=== PATIENT | female | born 1975 | race Caucasian/White ===

== ENCOUNTER 2019-04-19 17:34 | Emergency (ER) | payer OTHER, SELFPAY ==
--- NOTE | 2019-04-19 19:59 | ER ---
Nurse's Notes [facility] Name: Rose Johnson Age: 43 yrs Sex: Female : 1975 Arrival Date: 04/19/2019 Time: 17:39 Bed 9 Private MD: Diagnosis: Acute bronchitis Presentation: 04/19 17:53 Presenting complaint: Patient states: I woke up feeling really bad, sore throat, hurts la1 when I breathe. Transition of care: patient was not received from another setting of care. Onset of symptoms was April 19, 2019. Risk Assessment: Do you want to hurt yourself or someone else? Patient reports no desire to harm self or others. Initial Sepsis Screen: Does the patient meet any 2 criteria? No. Patient's initial sepsis screen is negative. Does the patient have a suspected source of infection? No. Patient's initial sepsis screen is negative. Care prior to arrival: None. 17:53 Method Of Arrival: Ambulatory la1 17:53 Acuity: AISHA 4 la1 Triage Assessment: 20:19 General: Appears in no apparent distress. Behavior is calm, cooperative. Pain: ak1 Complains of pain in throat. EENT: Throat is reddened. Neuro: Level of Consciousness is awake, alert, obeys commands, Oriented to person, place, time, Moves all extremities. Cardiovascular: No deficits noted. Respiratory: Airway is patent Respiratory effort is unlabored, Respiratory pattern is regular, symmetrical, Breath sounds are clear. Historical: - Allergies: 17:54 No Known Allergies; la1 - PMHx: 17:54 None; la1 - Immunization history:: Adult Immunizations up to date. - Social history:: Smoking status: Patient/guardian denies using tobacco. - Ebola Screening: : No symptoms or risks identified at this time. Screenin:19 Abuse screen: Denies threats or abuse. Denies injuries from another. Nutritional ak1 screening: No deficits noted. Tuberculosis screening: No symptoms or risk factors identified. Fall Risk None identified. Assessment: 20:19 Respiratory: Reports cough that is non-productive, Airway is patent Respiratory effort ak1 is even, unlabored, Respiratory pattern is regular, Breath sounds are clear. Vital Signs: 17:54 BP 147 / 88; Pulse 98; Resp 18; Temp 97.4; Pulse Ox 100% on R/A; Weight 117.93 kg; la1 Height 5 ft. 7 in. (170.18 cm); 17:54 Body Mass Index 40.72 (117.93 kg, 170.18 cm) la1 ED Course: 17:39 Patient arrived in ED. am2 17:53 Triage completed. la1 17:54 Arm band placed on left wrist. la1 17:56 Nida Fenton F[facility]-C [facility]. snw 17:56 Pollo Reyes MD is Attending Physician. snw 20:18 Sari Ordoñez, RN is Primary Nurse. ak1 20:19 Patient has correct armband on for positive identification. Bed in low position. ak1 20:19 No provider procedures requiring assistance completed. Patient did not have IV access ak1 during this emergency room visit. Administered Medications: 20:18 Drug: Tussionex Pennkinetic ER 5 ml Route: PO; ak1 20:31 Follow up: Response: No adverse reaction ak1 20:19 Drug: predniSONE 20 mg Route: PO; ak1 20:31 Follow up: Response: No adverse reaction ak1 20:19 Drug: Albuterol 2.5 mg Route: Inhalation; ak1 20:31 Follow up: Response: No adverse reaction ak1 Outcome: 19:58 Discharge ordered by MD. snw 20:20 Condition: good ak1 20:20 Discharge instructions given to patient, Instructed on discharge instructions, follow up and referral plans. no drinking with medication, no driving heavy equipment, medication usage, Demonstrated understanding of instructions, follow-up care, medications, Prescriptions given X 4. 20:35 Discharged to home ambulatory, with family. ak1 20:35 Patient left the ED. ak1 Signatures: Nida Fenton FNP-C FNP-Csnw Aaron Plmumer RN RN la1 Sari Ordoñez, RN RN ak1 Danni Rosales am2
--- NOTE | 2019-04-19 19:59 | EDPHYS ---
Physician Documentation [facility] Name: Rose Johnson Age: 43 yrs Sex: Female : 1975 Arrival Date: 04/19/2019 Time: 17:39 Bed 9 Private MD: ED Physician Pollo Reyes HPI: 04/20 00:21 This 43 yrs old Female presents to ER via Ambulatory with complaints of Sore snw Throat, Headache, Ear Pain. 00:21 The patient presents with sore throat. The patient describes throat pain as raw, snw scratchy. Onset: The symptoms/episode began/occurred suddenly, 1 day(s) ago, and became persistent. Severity of symptoms: At their worst the symptoms were moderate. Associated signs and symptoms: Pertinent positives: earache, flu-like symptoms, shortness of breath. It is unknown whether or not the patient has had similar symptoms in the past. It is unknown whether or not the patient has recently seen a physician. Historical: - Allergies: 04/19 17:54 No Known Allergies; la1 - PMHx: 17:54 None; la1 - Immunization history:: Adult Immunizations up to date. - Social history:: Smoking status: Patient/guardian denies using tobacco. - Ebola Screening: : No symptoms or risks identified at this time. ROS: 04/20 00:20 Eyes: Negative for injury, pain, redness, and discharge. snw Neck: Negative for injury, pain, and swelling, Cardiovascular: Negative for chest pain, palpitations, and edema, Abdomen/GI: Negative for abdominal pain, nausea, vomiting, diarrhea, and constipation, Back: Negative for injury and pain, : Negative for injury, bleeding, discharge, and swelling, MS/Extremity: Negative for injury and deformity, Skin: Negative for injury, rash, and discoloration, Neuro: Negative for headache, weakness, numbness, tingling, and seizure. Constitutional: Positive for body aches, chills, malaise, poor PO intake. ENT: Positive for ear pain, sore throat. Respiratory: Positive for cough, shortness of breath. Exam: 00:19 Constitutional: This is a well developed, well nourished patient who is awake, alert, snw and in no acute distress. Head/Face: Normocephalic, atraumatic. Eyes: Pupils equal round and reactive to light, extra-ocular motions intact. Lids and lashes normal. Conjunctiva and sclera are non-icteric and not injected. Cornea within normal limits. Periorbital areas with no swelling, redness, or edema. 00:19 Neck: Trachea midline, no thyromegaly or masses palpated, and no cervical lymphadenopathy. Supple, full range of motion without nuchal rigidity, or vertebral point tenderness. No Meningismus. Chest/axilla: Normal chest wall appearance and motion. Nontender with no deformity. No lesions are appreciated. Cardiovascular: Regular rate and rhythm with a normal S1 and S2. No gallops, murmurs, or rubs. Normal PMI, no JVD. No pulse deficits. 00:19 Abdomen/GI: Soft, non-tender, with normal bowel sounds. No distension or tympany. No guarding or rebound. No evidence of tenderness throughout. Back: No spinal tenderness. No costovertebral tenderness. Full range of motion. Skin: Warm, dry with normal turgor. Normal color with no rashes, no lesions, and no evidence of cellulitis. MS/ Extremity: Pulses equal, no cyanosis. Neurovascular intact. Full, normal range of motion. Neuro: Awake and alert, GCS 15, oriented to person, place, time, and situation. Cranial nerves II-XII grossly intact. Motor strength 5/5 in all extremities. Sensory grossly intact. Cerebellar exam normal. Normal gait. Psych: Awake, alert, with orientation to person, place and time. Behavior, mood, and affect are within normal limits. 00:19 ENT: Ear canal(s): are normal, TM's: are normal, Nose: is normal, Mouth: is normal, Posterior pharynx: erythema, that is moderate, Voice: is hoarse. 00:19 Respiratory: the patient does not display signs of respiratory distress, Respirations: shallow respirations, Breath sounds: bronchial sounds, bronchitic cough. Vital Signs: 04/19 17:54 BP 147 / 88; Pulse 98; Resp 18; Temp 97.4; Pulse Ox 100% on R/A; Weight 117.93 kg; la1 Height 5 ft. 7 in. (170.18 cm); 17:54 Body Mass Index 40.72 (117.93 kg, 170.18 cm) la1 MDM: 19:37 Patient medically screened. snw 04/20 00:20 Data reviewed: vital signs, nurses notes. Data interpreted: Pulse oximetry: on room air snw is 100 %. Interpretation: normal. Counseling: I had a detailed discussion with the patient and/or guardian regarding: the historical points, exam findings, and any diagnostic results supporting the discharge/admit diagnosis, lab results, the need for outpatient follow up, to return to the emergency department if symptoms worsen or persist or if there are any questions or concerns that arise at home. Special discussion: I have referred the patient to see his PCP for further evaluation of high blood pressure. Based on the history and exam findings, there is no indication for further emergent testing or inpatient evaluation. I discussed with the patient/guardian the need to see the primary care provider for further evaluation of the symptoms. 04/19 17:40 Order name: Strep; Complete Time: 18:54 snw 04/19 17:54 Order name: Flu; Complete Time: 18:54 la1 04/19 18:49 Order name: Throat Culture EDMS Administered Medications: 04/19 20:18 Drug: Tussionex Pennkinetic ER 5 ml Route: PO; ak1 20:31 Follow up: Response: No adverse reaction ak1 20:19 Drug: predniSONE 20 mg Route: PO; ak1 20:31 Follow up: Response: No adverse reaction ak1 20:19 Drug: Albuterol 2.5 mg Route: Inhalation; ak1 20:31 Follow up: Response: No adverse reaction ak1 Disposition: 04/20 07:07 Co-signature as Attending Physician, Pollo Reyes MD. rn Disposition: 04/19/19 19:58 Discharged to Home. Impression: Acute bronchitis. - Condition is Stable. - Discharge Instructions: Acute Bronchitis, Adult, Fever, Adult, Smoking Hazards, Cough, Adult, Rehydration, Adult. - Prescriptions for Zyrtec 10 mg Oral Tablet - take 1 tablet by ORAL route once daily As needed; 20 tablet. Prednisone 20 mg Oral Tablet - take 2 tablet by ORAL route once daily for 5 days; 10 tablet. Albuterol Sulfate 90 mcg/actuation - inhale 1-2 puff by INHALATION route every 4-6 hours; 1 Inhaler. Pepcid 20 mg Oral Tablet - take 1 tablet by ORAL route once daily for 10 days; 10 tablet. - Work release form, Medication Reconciliation Form, Thank You Letter, Antibiotic Education, Prescription Opioid Use form. - Follow up: Private Physician; When: 5 - 6 days; Reason: Recheck today's complaints, Continuance of care, Re-evaluation by your physician. Follow up: Emergency Department; When: As needed; Reason: Worsening of condition. Signatures: Dispatcher [employer] [facility] Jossy Nida, EVP STRATEGY-C EVP STRATEGY-Csnw Pollo Reyes MD MD rn Attema, Lee, RN RN la1 Sari Ordoñez RN RN ak1 Corrections: (The following items were deleted from the chart) 04/19 20:35 19:58 04/19/2019 19:58 Discharged to Home. Impression: Acute bronchitis. Condition is ak1 Stable. Forms are Medication Reconciliation Form, Thank You Letter, Antibiotic Education, Prescription Opioid Use. Follow up: Private Physician; When: 5 - 6 days; Reason: Recheck today's complaints, Continuance of care, Re-evaluation by your physician. Follow up: Emergency Department; When: As needed; Reason: Worsening of condition. snw
[2019-04-19] MEDS ORDERED: HYDROCODONE/CHLORPHEN 5 ML/OSYR ONE (20:17)
[2019-04-19] MEDS ORDERED: predniSONE 20 MG TAB ONE (20:17)
[2019-04-19] MEDS ORDERED: ALBUTEROL 2.5 MG/3 ML NEB SOL ONE (20:17)
[2019-04-19 22:04] VITALS: BP 147/88; TEMP 97.4; O2SAT 100
== END 2019-04-19 20:35 | disposition home or self-care (01) ==
LOC: ER 17:34
DX: J20.9 Acute bronchitis, unspecified (principal)
CPT/HCPCS: 87070; 87081; 87804; 99284; J7512

== ENCOUNTER 2022-02-06 08:58 | Emergency (ER) | payer OTHER ==
[2022-02-06] MEDS ORDERED: dexAMETHasone 10 MG/ML VIAL ONE (10:33)
--- NOTE | 2022-02-06 12:46 | EDPHYS ---
Physician Documentation [facility] Name: Rose Johnson Age: 46 yrs Sex: Female : 1975 Arrival Date: 02/06/2022 Time: 09:00 Bed 10 Private MD: Arlene Aguilera ED Physician Henry Mejia HPI: 02/06 12:45 This 46 yrs old Female presents to ER via Ambulatory with complaints of Eye Pain, Sore jmm Throat. 12:45 The patient presents with sore throat. jmm 12:45 Onset: The symptoms/episode began/occurred gradually. Modifying factors: The symptoms jmm are alleviated by nothing, the symptoms are aggravated by nothing. Associated signs and symptoms: Pertinent positives:. This is a 46 year old female with no chronic medical conditions that presents to the ED with complaints of 3 days of itching to her eyes with sore throat beginning last night. Denies cough, shortness of breath. . Historical: - Allergies: 09:31 No Known Allergies; jh6 - Home Meds: 10:53 None [Active]; jl7 - PMHx: 10:53 None; jl7 - PSHx: 10:53 None; jl7 - Immunization history:: Client reports receiving the 2nd dose of the Covid vaccine. - Social history:: Smoking status: Patient denies any tobacco usage or history of. ROS: 12:45 Constitutional: Negative for fever, chills, and weight loss. jmm 12:45 Eyes: Positive for itching. 12:45 ENT: Positive for sore throat. 12:45 All other systems are negative. Exam: 12:45 Constitutional: This is a well developed, well nourished patient who is awake, alert, jmm and in no acute distress. Head/Face: atraumatic. 12:45 Neck: Trachea midline, Supple Chest/axilla: Normal chest wall appearance and motion. Cardiovascular: Regular rate and rhythm. No edema appreciated Respiratory: Normal respirations, no respiratory distress appreciated Abdomen/GI: Non distended Back: Normal ROM Skin: General appearance color normal MS/ Extremity: Moves all extremities, no obvious deformities appreciated, no edema noted to the lower extremities Neuro: Awake and alert Psych: Behavior is normal, Mood is normal, Patient is cooperative and pleasant 12:45 Eyes: Conjunctiva: normal. 12:45 ENT: Posterior pharynx: Airway: normal, erythema, that is moderate. Vital Signs: 09:29 BP 132 / 90; Pulse 89; Resp 18; Temp 98.6(O); Pulse Ox 100% ; Weight 117.03 kg; Height jh6 5 ft. 7 in. (170.18 cm); Pain 7/10; 09:29 Body Mass Index 40.41 (117.03 kg, 170.18 cm) jh6 MDM: 09:22 Patient medically screened. [facility] 12:45 Data reviewed: vital signs, nurses notes. Counseling: I had a detailed discussion with [facility] the patient and/or guardian regarding: the historical points, exam findings, and any diagnostic results supporting the discharge/admit diagnosis, lab results, the need for outpatient follow up, to return to the emergency department if symptoms worsen or persist or if there are any questions or concerns that arise at home. 02/06 09:30 Order name: SARS-COV-2 RT PCR (Document "Date of Onset" if Symptomatic); Complete Time: [facility] 12:44 02/06 09:31 Order name: Strep; Complete Time: 10:38 [facility] 02/06 10:27 Order name: Throat Culture EDMS Administered Medications: 10:47 Drug: Decadron (dexamethasone) 10 mg Route: IM; Site: left deltoid; [facility] 13:03 Follow up: Response: No adverse reaction [facility] Disposition: 02/07 09:26 Co-signature as Attending Physician, Henry Mejia DO I was immediately available on-site ms3 in the Emergency Department for consultation in the care of the patient.. Disposition Summary: 02/06/22 12:45 Discharge Ordered Location: Home [facility] Condition: Stable [facility] Diagnosis - Acute pharyngitis, unspecified [facility] Followup: [facility] - With: Arlene Aguilera - When: 2 - 3 days - Reason: Recheck today's complaints, Continuance of care, Re-evaluation by your physician Discharge Instructions: - Discharge Summary Sheet [facility] - Pharyngitis [facility] Forms: - Medication Reconciliation Form [facility] - Thank You Letter [facility] - Antibiotic Education [facility] - Prescription Opioid Use [facility] - Work release form jl Prescriptions: - cefdinir 300 mg Oral capsule - take 1 capsule by ORAL route every 12 hours for 10 days; 20 capsule; Refills: [facility] 0, Product Selection Permitted Signatures: Dispatcher [employer] Manoj Escobar PA PA jmm Leal, Jahala, RN RN jl7 Henry Mejia DO DO ms3 Katelyn Rodriguez RN RN jh6
--- NOTE | 2022-02-06 12:46 | ER ---
Nurse's Notes [facility] Name: Rose Johnson Age: 46 yrs Sex: Female : 1975 Arrival Date: 02/06/2022 Time: 09:00 Bed 10 Private MD: Arlene Aguilera Diagnosis: Acute pharyngitis, unspecified Presentation: 02/06 09:29 Chief complaint: Patient states: WOKE UP AND MY THROAT FELT LIKE I WAS SWALLOWING RAZOR jh6 BLADES. Coronavirus screen: Vaccine status: Patient reports being unvaccinated. Ebola Screen: Patient negative for fever greater than or equal to 101.5 degrees Fahrenheit, and additional compatible Ebola Virus Disease symptoms Patient denies exposure to infectious person. Patient denies travel to an Ebola-affected area in the 21 days before illness onset. Mechanism of Injury: No Mechanism of Injury. The patient denies any loss of vision. Initial Sepsis Screen: Does the patient meet any 2 criteria? No. Patient's initial sepsis screen is negative. Does the patient have a suspected source of infection? No. Patient's initial sepsis screen is negative. Risk Assessment: Do you want to hurt yourself or someone else? Patient reports no desire to harm self or others. Onset of symptoms was February 06, 2022. 09:29 Method Of Arrival: Ambulatory [facility] 09:29 Acuity: AISHA 4 [facility] Triage Assessment: 09:31 General: Appears in no apparent distress. Behavior is calm, cooperative. Pain: [facility] Complains of pain in uvula, left aspect of posterior pharynx and right aspect of posterior pharynx Pain currently is 7 out of 10 on a pain scale. Quality of pain is described as sharp, Pain began 2-3 days ago. Is continuous. EENT: Oral mucosa is moist. Throat is reddened. Historical: - Allergies: 09:31 No Known Allergies; [facility] - Home Meds: 10:53 None [Active]; jl7 - PMHx: 10:53 None; jl7 - PSHx: 10:53 None; jl7 - Immunization history:: Client reports receiving the 2nd dose of the Covid vaccine. - Social history:: Smoking status: Patient denies any tobacco usage or history of. Screenin:01 Abuse screen: Denies threats or abuse. Denies injuries from another. Nutritional jl7 screening: No deficits noted. Tuberculosis screening: No symptoms or risk factors identified. Fall Risk None identified. Vital Signs: 09:29 BP 132 / 90; Pulse 89; Resp 18; Temp 98.6(O); Pulse Ox 100% ; Weight 117.03 kg; Height [facility] 5 ft. 7 in. (170.18 cm); Pain 7/10; 09:29 Body Mass Index 40.41 (117.03 kg, 170.18 cm) [facility] ED Course: 09:00 Patient arrived in ED. mr 09:00 Arlene Aguilera is Private Physician. mr 09:00 [facility]oj Norwood [facility] 09:00 Henry Mejia DO is Attending Physician. [facility] 09:31 Triage completed. [facility] 09:31 Arm band placed on right wrist. [facility] 09:36 Denys Urrutia RN is Primary Nurse. [facility] 10:00 COVID swab sent to lab. Strep swab sent to lab. [facility] 12:45 Arlene Aguilera is Referral Physician. [facility] 13:01 Patient has correct armband on for positive identification. [facility] 13:02 No provider procedures requiring assistance completed. Patient did not have IV access [facility] during this emergency room visit. Administered Medications: 10:47 Drug: Decadron (dexamethasone) 10 mg Route: IM; Site: left deltoid; 7 13:03 Follow up: Response: No adverse reaction 7 Medication: 13:01 VIS not applicable for this client. [facility] Outcome: 12:45 Discharge ordered by . [facility] 13:03 Discharged to home ambulatory. [facility] 13:03 Condition: stable 13:03 Discharge instructions given to patient, Instructed on discharge instructions, follow up and referral plans. medication usage, Demonstrated understanding of instructions, follow-up care, medications, Prescriptions given X 1. 13:03 Patient left the ED. [facility] Signatures: Manoj Norwood PA PA shayna BraxtonaNoelle mr Denys Urrutia, SONJA RN [facility] Katelyn Rodriguez RN RN [facility]
[2022-02-06 14:08] VITALS: BP 132/90; TEMP 98.6; O2SAT 100
--- OUTSIDE RECORDS SUMMARY | 2022-02-07 15:23 | XMS REPORT | Continuity of Care Document ---
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 00:00:00 00:00:00 Problems Condition Condition Condition Status Onset Resolution Last Treating Co mments Source Name Details Category Date Date Treatment Clinician Date Anxiety Anxiety Problem Active [place] 2[facility]05 [facility] Essential Essential Problem Active [facility] hypertensi Hypertensi 2-05 da on on 00:00: [facility] Candidiasi Candidiasi Problem Active M [facility] s of s of 7-30 da vagina Vagina 00:00: Medical 00 Group Female Female Problem Active [place] stress Stress 7-30 da incontinen Incontinen 00:00: Me dical ce ce 00 Group Menorrhagi Menorrhagi Problem Active 2017- [facility] a a 7-30 da 00:00: Medical 00 Group Gynecologi Gynecologi Problem Active 2017- [facility] c c 7-30 da examinatio Examinatio 00:00: Me dical n n 00 Group Screening Screening Problem Active [place] for for 7-30 da malignant Malignant 00:00: Medi sloan neoplasm Neoplasm 00 Group of breast of Breast Abscess Abscess Problem Active [facility] Allergies, Adverse Reactions, Alerts Allergy Allergy Status Severity Reaction(s) Onset Inactive Treating Comm ents Source Name Type Date Date Clinician Feltondan Allergy Active Moderate Hives [place] tin to to severe da substanc Medical e Group Social History Smoking Status Start Date Stop Date Source Never Smoker [facility] Medications Ordered Filled Start Stop Current Ordering Indication Dosage Frequency Signature Comments Components Source Medication Medication Date Date Medication? Clinician (SIG) Name Name Depo-Medrol Depo-Medrol No Depo-Medro [place] 40 mg/mL 40 mg/mL 5-30 l 40 mg/mL d a suspension suspension 16:29: suspension Medical for for 00 for Group injectionTa injectionTa injectionT ke 1 mL by ke 1 mL by aleah 1 mL injection injection by route. route. injection route. carvedilol carvedilol No 1 BID carvedilol [place] 12.5 mg 12.5 mg 12.5 mg da tablet Take tablet Take tablet Medical 1 tablet 1 tablet Take 1 Group twice a day twice a day tablet by oral by oral twice a route for route for day by 30 days. 30 days. oral route for 30 days. citalopram citalopram No 1 Q1D citalopram [place] 40 mg 40 mg 40 mg da tablet Take tablet Take tablet Medical 1 tablet 1 tablet Take 1 Group every day every day tablet by oral by oral every day route for route for by oral 30 days. 30 days. route for 30 days. Macrobid Macrobid No 1capsul Q12H Macrobid [place] 100 mg 100 mg e(s) 100 mg da capsule capsule capsule [facility] p Take 1 Take 1 Take 1 al capsule capsule capsule Health every 12 every 12 every 12 Out reac hours by hours by hours by h oral route oral route oral route Program for 7 days. for 7 days. for 7 days. Depo-Medrol Depo-Medrol No 1mL Depo-Medro [place] 40 mg/mL 40 mg/mL l 40 mg/mL d a suspension suspension suspension Medical for for for Group injection injection injection Take 1 mL Take 1 mL Take 1 mL by by by injection injection injection route. route. route. ibuprofen ibuprofen No ibuprofen [place] 800 mg 800 mg 800 mg da tablet Take tablet Take tablet Medical one tablet one tablet Take one Group every 8 every 8 tablet hours for hours for every 8 up to 3 up to 3 hours for days of days of up to 3 each menses each menses days of each menses Medrol Medrol No 1dose Medrol [place] (Tommy) 4 mg (Tommy) 4 mg pk(s) (Tommy) 4 mg da tablets in tablets in tablets in Medical a dose pack a dose pack a dose Group Take 1 dose Take 1 dose pack Take pk by oral pk by oral 1 dose pk route as route as by oral directed. directed. route as directed. triamcinolo triamcinolo No triamcinol [place] ne ne one da acetonide acetonide acetonide Medical 0.1 % 0.1 % 0.1 % Group topical topical topical cream APPLY cream APPLY cream A THIN A THIN APPLY A LAYER TO LAYER TO THIN LAYER THE THE TO THE AFFECTED AFFECTED AFFECTED AREA(S) BY AREA(S) BY AREA(S) BY TOPICAL TOPICAL TOPICAL ROUTE 2 ROUTE 2 ROUTE 2 TIMES PER TIMES PER TIMES PER DAY DAY DAY Vital Signs Vital Name Observation Time Observation Value Comments Source BP Diastolic 2019-08-25 00:00:00 66 mm[Hg] [facility] Height 2019-08-25 00:00:00 67 [in_i] [facility] BMI (Body Mass 2019-08-25 00:00:00 40.4 kg/m2 [facility] Index) Health Outreach Program BP Systolic 2019-08-25 00:00:00 115 mm[Hg] [facility] Body Weight 2019-08-25 00:00:00 258 [lb_av] [facility] BP Diastolic 2018-12-17 00:00:00 90 mm[Hg] [facility] Height 2018-12-17 00:00:00 67.5 [in_i] [facility] BMI (Body Mass 2018-12-17 00:00:00 42.6 kg/m2 [facility] Medical Index) Group BP Systolic 2018-12-17 00:00:00 138 mm[Hg] [facility] Body Weight 2018-12-17 00:00:00 4417 [oz_av] [facility] BP Diastolic 2018-12-10 00:00:00 90 mm[Hg] [facility] Height 2018-12-10 00:00:00 67.5 [in_i] [facility] BMI (Body Mass 2018-12-10 00:00:00 42.4 kg/m2 [facility] Index) Group BP Systolic 2018-12-10 00:00:00 134 mm[Hg] [facility] Body Weight 2018-12-10 00:00:00 4393 [oz_av] [facility] Procedures Procedure Date / Time Performed Performing Clinician Sourc e Cholecystectomy 2002-07-21 00:00:00 Jenny Ia dical Group Tubal Ligation 1997-08-21 00:00:00 [facility] Tubal Ligation 1997-07-21 00:00:00 Jenny Ia dical Group Plan of Care Planned Activity Planned Date Details Comments Source Diagnostic Test 2019-08-25 bacterial vaginosis [place] Pending 00:00:00 + vaginitis panel, Health Ou [place] vaginal [code = Program bacterial vaginosis + vaginitis panel, vaginal] Diagnostic Test 2019-08-25 culture, urine [place] [facility] Pending 00:00:00 [code = culture, Health Outr each urine] Program Diagnostic Test 2019-08-25 urinalysis, [place] [facility] Pending 00:00:00 dipstick [code = Health Outr each urinalysis, Program dipstick] Encounters Start End Encounter Admission Attending Care Care Encounter Source Date/Time Date/Time Type Type Clinicians Facility Department ID 2021 2021 Outpatient ALEXANDREA_JEN [place] [id number] [place] 12:26:00 12:26:00 [facility] 2021 2021 Outpatient LISTER_VALERIEI [place] [id number] [place] 12:26:00 12:26:00 [facility] 07[facility] 2020-06-07 2020-06-07 Outpatient Zuniga_F [facility] MMG 2019 [place] 02:48:00 02:48:00 1118 da [facility] Group 2019-09-04 2019-09-04 Outpatient CM SAUL MEHOP [id number] [place] 11:04:00 11:04:00 [facility] 0629 [facility] 2019-09-01 2019-09-01 Outpatient CM SAUL MEHOP [id number] [place] 02:15:00 02:15:00 S[facility] 0212 [facility] 2019-08-26 2019-08-26 Outpatient CM SAUL MEHOP [id number] [place] 11:53:00 11:53:00 SSA 0206 [facility] 2019-08-25 2019-08-25 Outpatient CM SAUL MEHOP 834 [place] 04:22:00 04:22:00 SSA 0205 [facility] 2019-08-25 2019-08-25 Mattie [facility] [place] - [id number] M at[place] 00:00:00 00:00:00 Taniya Jenny Morin, [facility] p 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 2018-12-17 2018-12-17 Oscar [facility] [place] - [id number] [place] 00:00:00 00:00:00 Noam Torres MD: [address] [facility] [address], [place] [address] , Ph. 2018-12-10 2018-12-10 Oscar [facility] [place] - [id number] [place] 00:00:00 00:00:00 Noam Torres MD: [address] [address], [place] [address] , Ph. Results Test Description Test Time Test Comments Results Result Comments Source Urinalysis macro (dipstick) panel - Urine 2019-08-25 15:24:0 0 Test Item Value Reference Range Interpretation Comme nts Leukocytes (test code = Leukocytes) neg Nitrite (test code = Nitrite) neg Urobilinogen (test code = Urobilinogen) 0.2 Protein (test code = Protein) neg pH (test code = pH) 6.0 Blood (test code = Blood) neg Specific [place] (test code = Specific [place]) 1.015 Ketone (test code = Ketone) neg Bilirubin (test code = Bilirubin) neg Glucose (test code = Glucose) neg [facility]
== END 2022-02-06 13:03 | disposition home or self-care (01) ==
LOC: ER 08:58
DX: J02.9 Acute pharyngitis, unspecified (principal); Z20.822 Contact with and (suspected) exposure to COVID-19
CPT/HCPCS: 87070; 87081; U0003; J1100

== ENCOUNTER 2022-12-03 13:03 | Emergency (ER) | payer SELFPAY ==
--- OUTSIDE RECORDS SUMMARY | 2022-12-03 13:06 | XMS REPORT | Continuity of Care Document ---
:1975 Author Organization [facility] Address [address] [facility] [place] [address] Care Team Providers Name Role Phone SYD Attending Clinician Unavailable Zunaguilar_Yaima Attending Clinician Unavailable SYD Admitting Clinician Unavailable Zunaguilar_F Admitting Clinician Unavailable Payers Payer Name Policy Type Policy Number Effective Date Expiration Date S [place] - [id number] 2019 [facility] 00:00:00 PROGRAM (MEDICAID) [employer] [id number] 2018 2018 INSURANCE COMPANY 00:00:00 00:00:00 Problems [...] for for 7-30 da malignant Malignant 00:00: [place] [facility] sloan neoplasm Neoplasm 00 Group of breast of Breast Abscess Abscess Problem Active [facility] Allergies, Adverse Reactions, Alerts Allergy Allergy Status Severity Reaction(s) Onset Inactive Treating Comm ents Source Name Type Date Date Clinician Macrodan Allergy Active Moderate Hives [place] tin to to severe da substanc Medical e Group Social History Smoking Status Start Date Stop Date Source Never Smoker [facility] Medications Ordered Filled Start [...] injection injection by route. route. injection route. Macrobid Macrobid No 1capsul Q12H Macrobid [place] 100 mg 100 mg e(s) 100 mg da capsule capsule capsule [facility] p Take 1 Take 1 Take 1 al capsule capsule capsule Health every 12 every 12 every 12 Out reac hours by hours by hours by h oral route oral route oral route Program for 7 days. for 7 days. for 7 days. carvedilol carvedilol No 1 BID carvedilol [place] [...] days. 30 days. route for 30 days. Depo-Medrol Depo-Medrol No 1mL Depo-Medro [place] [...] Source BP Diastolic 2019-08-25 00:00:00 66 mm[Hg] [facility] Height 2019-08-25 00:00:00 67 [in_i] [facility] BMI (Body Mass 2019-08-25 00:00:00 40.4 kg/m2 [facility] Index) Health Outreach Program BP Systolic 2019-08-25 00:00:00 115 mm[Hg] [facility] Body Weight 2019-08-25 00:00:00 258 [lb_av] [facility] Outreach [facility] BP Diastolic 2018-12-17 00:00:00 90 mm[Hg] [facility] Height 2018-12-17 00:00:00 67.5 [in_i] [facility] BMI (Body Mass 2018-12-17 00:00:00 42.6 kg/m2 [facility] Medical Index) Group BP Systolic 2018-12-17 00:00:00 138 mm[Hg] [facility] Body Weight 2018-12-17 00:00:00 4417 [oz_av] [facility] BP Diastolic 2018-12-10 00:00:00 90 mm[Hg] [facility] Height 2018-12-10 00:00:00 67.5 [in_i] [facility] BMI (Body Mass 2018-12-10 00:00:00 42.4 kg/m2 [facility] Index) Group BP Systolic 2018-12-10 00:00:00 134 mm[Hg] [facility] Body Weight 2018-12-10 00:00:00 4393 [oz_av] [facility] Procedures Procedure Date / Time Performed Performing Clinician Sourc e Cholecystectomy 2002-07-21 00:00:00 Jenny Md dical Group Tubal Ligation 1997-08-21 00:00:00 [place] [facility] Tubal Ligation 1997-07-21 00:00:00 Jenny Me dical Group Plan of Care Planned Activity Planned Date Details Comments Source Diagnostic Test 2019-08-25 bacterial vaginosis [place] [facility] Pending 00:00:00 + vaginitis panel, Health [facility] [place] vaginal [code = Program bacterial vaginosis + vaginitis panel, vaginal] Diagnostic Test 2019-08-25 culture, urine [place] [facility] Pending 00:00:00 [code = culture, Health Outr each urine] Program Diagnostic Test 2019-08-25 urinalysis, [place] [facility] Pending 00:00:00 dipstick [code = Health Outr each urinalysis, Program dipstick] Encounters Start End Encounter Admission Attending Care Care Encounter Source Date/Time Date/Time Type Type Clinicians Facility Department ID 2021 2021 Outpatient ALEXANDREA_VALERIEMarti [place] [id number] [place] 12:26:00 12:26:00 [facility] 0422 [facility] 2021 2021 Outpatient ALEXANDREA_JEN [place] [id number] [place] 12:26:00 12:26:00 SSA 0720 da [facility] [...] Health Outreac h Program 2019-08-25 2019-08-25 Mattie [facility] [place] - [id number] M [facility] 00:00:00 00:00:00 Taniya Morin, [facility] p 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 2018-12-17 2018-12-17 Oscar [facility] [place] - [id number] [place] 00:00:00 00:00:00 Wilfredo Pleitez 0530 Noam Mayorga MD: [address] [address], [place] [address] , Ph. 2018-12-10 2018-12-10 Oscar [facility] [place] [place] - [id number] [place] 00:00:00 00:00:00 Wilfredo Pleitez 0523 Noam Mayorga MD: [address] [address], [place] [address] , Ph. Results Test Description Test Time [...] Blood (test code = Blood) neg Specific [place] (test code = Specific [place]) 1.015 Ketone (test code = Ketone) neg Bilirubin (test code = Bilirubin) neg Glucose (test code = Glucose) neg [facility]
[2022-12-03 13:39] LABS: Absolute Lymphocytes (CBC) 1.3 K/uL (0.7-4.9); Hematocrit 32.4 % (36.0-45.0); Lymphocytes % 15.6 % (15.3-44.8); MCV 74.4 fL (80-100); RBC Red Blood Cell Count 4.36 M/uL (3.86-4.86)
[2022-12-03 13:43] LABS: Protime INR 1.04
[2022-12-03] MEDS ORDERED: FAMOTIDINE 20 MG/2 ML VIAL IV ONE (13:45)
[2022-12-03] MEDS ORDERED: LIDOCAINE VISCOUS 2% SOLN 15 ML UDC ONE (13:45)
[2022-12-03] MEDS ORDERED: MAGNES/ALUMIN/SIMET 30ML UCUP ONE (13:45)
[2022-12-03 13:58] LABS: Albumin 3.2 g/dL (3.4-5.0); Bilirubin Direct 0.1 mg/dL (0-0.2); Bilirubin Indirect, Calculated 0.4 mg/dL (0.2-0.8); Bilirubin Total 0.5 mg/dL (0.2-1.0); Potassium 3.8 mEq/L (3.5-5.1); Protein, Total 6.9 g/dL (6.4-8.2); Troponin High Sensitivity 3.2 pg/mL (<58.9)
--- NOTE | 2022-12-03 14:04 | RAD REPORT ---
EXAM DESCRIPTION: RAD - Chest Single View - 12/03/2022 1:52 pm CLINICAL HISTORY: CHEST PAIN Chest pain. COMPARISON: <Comparisons> FINDINGS: Portable technique limits examination quality. The lungs are grossly clear. The heart is normal in size. No displaced fractures. IMPRESSION: No acute intrathoracic process suspected.
--- NOTE | 2022-12-03 15:02 | RAD REPORT ---
EXAM DESCRIPTION: CT - Chest For Pe Angio - 12/03/2022 2:49 pm CLINICAL HISTORY: Chest pain. CHEST PAIN COMPARISON: Chest Single View dated 12/03/2022 TECHNIQUE: CT angiogram of the pulmonary arteries was performed with MIP. All CT scans are performed using dose optimization technique as appropriate and may include automated exposure control or mA/KV adjustment according to patient size. FINDINGS: No evidence of pulmonary thromboembolism. No acute aortic finding demonstrated. The lungs are clear. No significant pericardial or pleural fluid. No concerning bony finding. IMPRESSION: No evidence of pulmonary thromboembolism. No acute lung findings.
[2022-12-03] MEDS ORDERED: MORPHINE 2 MG/ML SYR ONE (15:21)
--- NOTE | 2022-12-03 16:18 | EDPHYS ---
Physician Documentation [facility] Name: Rose Johnson Age: 47 yrs Sex: Female : 1975 Arrival Date: 12/03/2022 Time: 13:03 Bed 16 Private MD: ED Physician Pollo Reyes HPI: 12/03 13:27 This 47 yrs old Female presents to ER via Ambulatory with complaints of Chest Pain. rn 13:27 The patient or guardian reports chest pain that is located primarily in the anterior rn chest wall, left. Onset: 3 week(s) ago. The pain radiates to the left shoulder. Associated signs and symptoms: Pertinent positives: None. Pertinent negatives: abdominal pain, cough, diaphoresis, shortness of breath, syncope, vomiting. The chest pain is described as dull, a heaviness. Duration: The patient or guardian reports multiple episodes, that are intermittent. Modifying factors: The symptoms are alleviated by nothing. the symptoms are aggravated by nothing. Severity of pain: At its worst the pain was mild in the emergency department the pain is unchanged. The patient has not experienced similar symptoms in the past. The patient has not recently seen a physician. Pt reports left sided chest pain, dull, intermittent for 3 weeks. No cardiac history. No fever/cough/sob. No hx of dvt/PE. No abd pain. Reports "thinks its gas". No back pain. NO famhx of early cardiac problems. . Historical: - Allergies: 13:19 Macrodantin; nj1 - PMHx: 13:19 Hypertensive disorder; nj1 - PSHx: 13:19 Cholecystectomy; tubal; nj1 - Immunization history:: Client reports receiving the 2nd dose of the Covid vaccine. - Social history:: Smoking status: Patient denies any tobacco usage or history of. - Family history:: not pertinent. - Hospitalizations: : No recent hospitalization is reported. ROS: 13:27 Constitutional: Negative for fever, chills, and weight loss, Cardiovascular: Negative rn for palpitations, and edema, Respiratory: Negative for shortness of breath, cough, wheezing, and pleuritic chest pain, Abdomen/GI: Negative for abdominal pain, nausea, vomiting, diarrhea, and constipation, Back: Negative for injury and pain, MS/Extremity: Negative for injury and deformity, Skin: Negative for injury, rash, and discoloration, Neuro: Negative for headache, weakness, numbness, tingling, and seizure. Exam: 13:26 ECG was reviewed by the Attending Physician. rn 13:27 Constitutional: This is a well developed, well nourished patient who is awake, alert, rn and in no acute distress. Head/Face: Normocephalic, atraumatic. Cardiovascular: Regular rate and rhythm. No pulse deficits. Respiratory: No increased work of breathing, no retractions or nasal flaring. Abdomen/GI: soft, non-tender Skin: Warm, dry MS/ Extremity: Pulses equal, no cyanosis. Neuro: Awake and alert, GCS 15 Vital Signs: 13:17 BP 143 / 86; Pulse 90; Resp 16; Pulse Ox 100% on R/A; Weight 131.09 kg; Height 5 ft. 7 nj1 in. ; Pain 10/10; 13:35 BP 137 / 87; Pulse 73; Resp 17; Pulse Ox 100% on R/A; ld1 15:00 BP 117 / 63; Pulse 69; Resp 18; Pulse Ox 100% on R/A; Pain 8/10; ld1 13:17 Body Mass Index 45.26 (131.09 kg, 170.18 cm) nj1 13:17 Pain Scale: Adult nj1 15:00 Pain Scale: Adult ld1 MDM: 13:06 Patient medically screened. rn 16:13 Differential diagnosis: acute myocardial infarction, acute pericarditis, anxiety, rn coronary artery disease costochondritis, esophagitis, gastritis, gastroesophageal reflux disease (GERD), pericarditis, pleurisy, pneumonia, pulmonary embolus. Data reviewed: vital signs, nurses notes, lab test result(s), EKG, radiologic studies, CT scan, plain films, and as a result, I will discharge patient. Counseling: I had a detailed discussion with the patient and/or guardian regarding: the historical points, exam findings, and any diagnostic results supporting the discharge/admit diagnosis, lab results, radiology results, the need for outpatient follow up, to return to the emergency department if symptoms worsen or persist or if there are any questions or concerns that arise at home. Response to treatment: the patient's symptoms have markedly improved after treatment, and as a result, I will discharge patient. Special discussion: Based on the patient's history, exam, and Dx evaluation, there is no indication for emergent intervention or inpatient Tx. It is understood by the patient/guardian that if the Sx's persist or worsen they need to return immediately for re-evaluation. I discussed with the patient/guardian in detail that at this point there is no indication for admission to the hospital. It is understood, however, that if the symptoms persist or worsen the patient needs to return immediately for re-evaluation. ED course: Pt improved, d-dimer elevated, but CT chest neg. Neg trop. No ischemia on ecg. Pt reports improved with GI cocktail and burping. Will dc home as possible GI related chest pain and given return precautions. . 12/03 13:24 Order name: Basic Metabolic Panel; Complete Time: 14:14 rn 12/03 13:24 Order name: CBC with Diff; Complete Time: 14:14 rn 12/03 13:24 Order name: LFT's; Complete Time: 14:14 rn 12/03 13:24 Order name: NT PRO-BNP; Complete Time: 14:14 12/03 13:24 Order name: PT-INR; Complete Time: 14:14 12/03 13:24 Order name: Troponin HS; Complete Time: 14:14 12/03 13:24 Order name: D-Dimer; Complete Time: 14:14 rn 12/03 13:24 Order name: XRAY Chest (1 view); Complete Time: 14:14 rn 12/03 14:14 Order name: CT Chest For PE Angio; Complete Time: 15:03 rn 12/03 13:24 Order name: EKG; Complete Time: 13:25 12/03 13:24 Order name: Cardiac monitoring; Complete Time: :34 12/03 13:24 Order name: EKG - Nurse/Tech; Complete Time: :34 12/03 13:24 Order name: IV Saline Lock; Complete Time: :12/03 13:24 Order name: Labs collected and sent; Complete Time: : rn 12/03 13:24 Order name: O2 Per Protocol; Complete Time: :12/03 13:24 Order name: O2 Sat Monitoring; Complete Time: :34 rn EC:26 Rate is 77 beats/min. Rhythm is regular. QRS [place] is Normal. NE interval is normal. QRS rn interval is normal. QT interval is normal. No Q waves. T waves are Normal. No ST changes noted. Clinical impression: Normal ECG. Interpreted by me. Reviewed by me. Administered Medications: 13:43 Drug: GI Cocktail without - (Maalox PO Suspension 30 ml, Lidocaine Mucous ld1 Membrane Liquid 2 % 15 ml) Route: PO; 13:43 Drug: Famotidine IVP 20 mg Route: IVP; Site: left antecubital; ld1 15:17 Drug: morphine IVP or IV 2 mg Route: IVP; Infused Over: 4 mins; Site: left antecubital; ld1 Disposition Summary: 12/03/22 16:17 Discharge Ordered Location: Home rn Problem: new rn Symptoms: have improved rn Condition: Stable rn Diagnosis - Chest pain, unspecified rn Followup: rn - With: Private Physician - When: As needed - Reason: Recheck today's complaints, Re-evaluation by your physician Discharge Instructions: - Discharge Summary Sheet rn - Nonspecific Chest Pain, Adult rn - Pain Without a Known Cause rn Forms: - Medication Reconciliation Form rn - Thank You Letter rn - Antibiotic contractor 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
--- NOTE | 2022-12-03 16:18 | ER ---
Nurse's Notes [facility] Name: Rose Johnson Age: 47 yrs Sex: Female : 1975 Arrival Date: 12/03/2022 Time: 13:03 Bed 16 Private MD: Diagnosis: Chest pain, unspecified Presentation: 12/03 13:17 Chief complaint: Patient states: chest pain on/off for the last couple of weeks, today nj1 started at around 5am and has not gotten better "its making my left arm tingle". Coronavirus screen: Vaccine status: Patient reports receiving the 2nd dose of the covid vaccine. Ebola Screen: Patient denies travel to an Ebola-affected area in the 21 days before illness onset. Initial Sepsis Screen: Does the patient meet any 2 criteria? No. Patient's initial sepsis screen is negative. Does the patient have a suspected source of infection? No. Patient's initial sepsis screen is negative. Risk Assessment: Do you want to hurt yourself or someone else? Patient reports no desire to harm self or others. Onset of symptoms was December 03, 2022 at 05:00. 13:17 Method Of Arrival: Ambulatory [facility] 13:17 Acuity: AISHA 3 nj1 Historical: - Allergies: 13:19 Macrodantin; nj1 - PMHx: 13:19 Hypertensive disorder; nj1 - PSHx: 13:19 Cholecystectomy; tubal; nj1 - Immunization history:: Client reports receiving the 2nd dose of the Covid vaccine. - Social history:: Smoking status: Patient denies any tobacco usage or history of. - Family history:: not pertinent. - Hospitalizations: : No recent hospitalization is reported. Screenin:43 [facility] ED Fall Risk Assessment (Adult) History of falling in the last 3 months, ld1 including since admission No falls in past 3 months (0 pts). Abuse screen: Denies threats or abuse. Denies injuries from another. Nutritional screening: No deficits noted. Tuberculosis screening: No symptoms or risk factors identified. Assessment: 13:43 Reassessment:. Reassessment: See triage assessment. General: Appears in no apparent ld1 distress. comfortable, Behavior is calm, cooperative, appropriate for age. Pain: Complains of pain in chest Pain does not radiate. Pain currently is 9 out of 10 on a pain scale. Quality of pain is described as throbbing, Pain began suddenly. Neuro: Level of Consciousness is awake, alert, obeys commands, Oriented to person, place, time, situation. Cardiovascular: Capillary refill < 3 seconds Patient's skin is warm and dry. Rhythm is sinus rhythm. Respiratory: Airway is patent Respiratory effort is even, unlabored. GI: Abdomen is round non-distended. : No signs and/or symptoms were reported regarding the genitourinary system. Vital Signs: 13:17 BP 143 / 86; Pulse 90; Resp 16; Pulse Ox 100% on R/A; Weight 131.09 kg; Height 5 ft. 7 nj1 in. ; Pain 10/10; 13:35 BP 137 / 87; Pulse 73; Resp 17; Pulse Ox 100% on R/A; ld1 15:00 BP 117 / 63; Pulse 69; Resp 18; Pulse Ox 100% on R/A; Pain 8/10; ld1 13:17 Body Mass Index 45.26 (131.09 kg, 170.18 cm) nj1 13:17 Pain Scale: Adult nj1 15:00 Pain Scale: Adult ld1 ED Course: 13:04 Patient arrived in ED. rg4 13:06 Pollo Reyes MD is Attending Physician. rn 13:19 Triage completed. nj1 13:20 Arm band placed on. nj1 13:35 Joan Mejia, RN is Primary Nurse. ld1 13:35 Inserted saline lock: 20 gauge in left antecubital area, using aseptic technique. Blood ld1 collected. 13:43 Patient has correct armband on for positive identification. Placed in gown. Bed in low ld1 position. Call light in reach. Side rails up X2. hospital pharmacy director on. Pulse ox on. NIBP on. Door closed. Noise minimized. Warm blanket given. 13:43 No provider procedures requiring assistance completed. Patient maintains SpO2 ld1 saturation greater than 95% on room air. 13:53 XRAY Chest (1 view) In Process Unspecified. EDMS 14:50 CT Chest For PE Angio In Process Unspecified. EDMS 16:43 IV discontinued, intact, bleeding controlled, No redness/swelling at site. ld1 Administered Medications: 13:43 Drug: GI Cocktail without - (Maalox PO Suspension 30 ml, Lidocaine Mucous ld1 Membrane Liquid 2 % 15 ml) Route: PO; 13:43 Drug: Famotidine IVP 20 mg Route: IVP; Site: left antecubital; ld1 15:17 Drug: morphine IVP or IV 2 mg Route: IVP; Infused Over: 4 mins; Site: left antecubital; ld1 Medication: 13:43 VIS not applicable for this client. ld1 Outcome: 16:17 Discharge ordered by . rn 16:43 Discharged to home ambulatory, with family. ld1 16:43 Condition: stable 16:43 Discharge instructions given to patient, family, Instructed on discharge instructions, follow up and referral plans. medication usage, Demonstrated understanding of instructions, follow-up care, medications, Prescriptions given X 2. 16:44 Patient left the ED. ld1 Signatures: Dispatcher [employer] EDMS Pollo Reyes MD MD rn Garcia, Rubi rg4 Joan Mejia RN RN ld1 Maddie Arambula RN RN nj1
[2022-12-03 17:07] VITALS: O2SAT 100
[2022-12-03 17:09] VITALS: BP 117/63
--- NOTE | 2022-12-05 11:25 | EKG ---
Test Date: 2022-12-03 Test Time: 13:16:33 [employer]: ARSALAN MEASUREMENT RESULTS: Intervals: Rate: 77 WA: 126 QRSD: 80 QT: 380 QTc: 430 [place]: P: 43 WA: 126 QRS: 25 T: 51 INTERPRETIVE STATEMENTS: Normal sinus rhythm Normal ECG No previous ECG available for comparison Electronically Signed On 12-05-22 11:20:37 CDT by Adebayo Stewart
== END 2022-12-03 16:44 | disposition home or self-care (01) ==
LOC: ER 13:03
DX: R07.89 Other chest pain (principal)
CPT/HCPCS: 36415; 71045; 71275; 80048; 80076; 83880; 84484; 85025; 85379; 85610; 93005; 96374; 96375; 99285; J2270; Q9967